=== PATIENT | female | born 1985 | race Caucasian/White ===

== ENCOUNTER 2017-06-15 08:16 | Inpatient (IN) | payer BC ==
[2017-06-15] MEDS ORDERED: Misoprostol 400 MCG (4 X 100 MCG TAB) RECTAL PRN (08:41)
[2017-06-15] MEDS ORDERED: Methylergonovine 0.2 MG/1 ML Amp IM PRN (08:41)
[2017-06-15] MEDS ORDERED: Sodium Chloride 0.9% 10 ML Syringe FLUSH PRN ×2 (08:41→10:09)
[2017-06-15] MEDS ORDERED: Ondansetron 4 MG/2 ML SDV IV PRN (08:41)
[2017-06-15] MEDS ORDERED: Lidocaine 1% 30 ML SDV INJECT PRN (08:41)
[2017-06-15] MEDS ORDERED: Lactated Ringers 500 ML IV ONE (08:41)
[2017-06-15] MEDS ORDERED: Acetaminophen 325 MG Tab PO PRN (08:41)
[2017-06-15] MEDS ORDERED: Carboprost Tromethamine 250 MCG/1 ML Amp IM PRN (08:41)
[2017-06-15] MEDS ORDERED: Tranexamic Acid 1,000 MG in Sodium Chloride 0.9% 100 ML IV PRN ×2 (08:41→09:54)
[2017-06-15] MEDS ORDERED: Lactated Ringers 1,000 ML IV SCH (08:45)
[2017-06-15] MEDS ORDERED: Zolpidem 5 MG Tab PO PRN (09:54)
[2017-06-15] MEDS ORDERED: Simethicone 80 MG Tab.Chew PO PRN (09:54)
[2017-06-15] MEDS ORDERED: Oxytocin 10 Units/1 ML SDV IM PRN (09:54)
[2017-06-15] MEDS ORDERED: Benzocaine/Menthol 20%-0.5% Spray 56 GM Canister TOP PRN (09:54)
[2017-06-15] MEDS ORDERED: Oxytocin/Normal Saline 30 UNIT/500 ML BAG IV SCH (11:00)
--- NOTE | 2017-06-15 11:58 | HP ---
PATIENT IDENTIFICATION: Shila Patterson is a 31-year-old G4, P2-1-0-3, intrauterine , 37 and 4/7 weeks, confirmed with 21 and 2/7-week ultrasound, who presents with contractions. HISTORY OF PRESENT ILLNESS: The patient states contractions started entry tech of admission around 7:00 increasing in frequency and intensity to the point that they are felt every 5 to 10 minutes, felt in the lower abdomen, rated 8/10, severe enough that she breathes through them, and this has been associated with minimal bloody show. She denies any leaking of fluid. To put this in context, she has a history of a delivery. She is GBS negative and has history of hemorrhage and atony with her first child. Records were called for, reviewed as below, and supplemented by patient history. ALLERGIES: None. MEDICATIONS: vitamins. PAST OBSTETRICAL HISTORY: 1. On 11/06/2015, delivered a female, 39 weeks, 3232 g. 2. On 05/12/2013, 36 and 1/7 weeks, delivered a female, spontaneous vaginal delivery. 3. On 12/10/2011, 40 and 2/7 weeks, delivered a female, spontaneous vaginal delivery, complicated by uterine atony and hemorrhage, requiring Hemabate. ANTEPARTUM LABORATORY DATA: ABO blood type B positive. Negative antibody. Rubella immune. RPR nonreactive. Negative hepatitis B surface antigen. Negative HIV. Negative GC and Chlamydia with wet prep essentially within normal limits. One-hour GTT on 04/06/2017, was 131. GBS from 06/06/2017 was negative. PAST MEDICAL/PAST SURGICAL HISTORY: Remarkable for history of UTIs in the past, epilepsy as a child, and surgeries including wisdom teeth extraction. FAMILY HISTORY: Thyroid disease in mother. Skin cancer in maternal grandfather with diabetes. Distant cousin with hypoplastic left heart with surgery at age 12. No other defects, anesthesia problems, or bleeding problems. SOCIAL HISTORY: She does not drink, use alcohol, or smoke. 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 has been farming. REVIEW OF SYSTEMS: Otherwise, quickly reviewed and felt to be noncontributory. The patient denies any headaches, visual changes, or upper abdominal pain. PHYSICAL EXAMINATION: Vital Signs: Initial blood pressure 140/89, recheck 142/70; heart rate between 66 and 71; and temperature is 98.1. Appearance: Female, appears her stated age, acting appropriate for age, nontoxic in appearance, breathing through contractions but answering questions appropriately in between. HEENT: Head atraumatic. EOMs intact. PERRLA. No scleral icterus. No obvious otorrhea or rhinorrhea. Mucous membranes are moist. Neck: No obvious tenderness. Lungs: Clear to auscultation bilaterally. No increased work of breathing. Heart: S1 and S2. Regular rate and rhythm. Abdomen: Gravid. Remy's indeterminate. Nontender and nondistended. Bowel sounds positive. No other organomegaly, pulsatile masses, or obvious hernias. No rebound, rigidity, or guarding. Genitourinary: Normal external female genitalia. Normal position and presentation of urethra. Vaginal exam reveals her initially to be 5+ cm, 100% effaced, 0 to -1 station, and vertex suspected. She subsequently moved to an inpatient room, shortly evaluated thereafter, and found to be 7 cm, 100% effaced, 0 station, and vertex suspected. Artificial rupture of membranes done yielding copious amounts of clear fluid. heart tones in the 125 range, baseline with accelerations noted and reactive strip. Tocometer reveals contractions every 4 to 5 minutes apart. LABORATORY DATA: Pending her labs. ASSESSMENT: 1. Intrauterine at 37 and 4/7 weeks, confirmed with 21 and 2/7-week ultrasound. 2. Active labor. 3. Advanced cervical dilation. 4. Transient versus gestational hypertension versus preeclampsia. Labs are being done. 5. Group B Streptococcus negative. 6. History of delivery. 7. History of hemorrhage, secondary to uterine atony. We will have medicines available and ready. 8. G4, P2-1-0-3. PLAN: The patient has been admitted. Artificial rupture of membranes has been done. The patient defers wanting anything for pain. We will continue to follow clinically and closely. She denies any signs or symptoms of severe preeclampsia. Labs will be drawn. [facility] /[id number]
--- NOTE | 2017-06-15 12:07 | OBOUT ---
DATE: 06/15/2017 DATE AND TIME OF NST: Date: 06/15/2017. Time: 8:50 to 9:05. REASON FOR NST: 1. Intrauterine 37 and 4/7 weeks, confirmed with 21 and 2/7 weeks ultrasound. 2. Active labor. 3. Advanced cervical dilation. 4. Transient versus gestational hypertension versus preeclampsia. 5. Group B Streptococcus negative. 6. History of delivery. 7. History of hemorrhage, secondary to apnea. 8. G4, P2-1-0-3. NST INTERPRETATION: During this time period, tone baseline is approximately 125 with at least two 15 x 15 beats per minute accelerations, making this strip reactive. It is also noted to be reassuring Tocometer reveals potential 4 to 5 contractions felt by patient. ASSESSMENT: 1. Nonstress test, reactive and reassuring. 2. Tocometer with contractions. PLAN: Please see admit history and physical for further details. [facility] /[id number]
[2017-06-15] MEDS: Ibuprofen 800 MG Tab PO PRN ×2 (12:47→21:20)
--- NOTE | 2017-06-15 14:40 | DEL ---
DATE: 06/15/2017 PREOPERATIVE DIAGNOSES: 1. Intrauterine 37 and 4/7 weeks, confirmed with 21 and 2/7 week ultrasound. 2. Active labor upon admit. 3. Advanced cervical dilation upon admit. 4. Gestational hypertension vs preeclampsia, labs pending. 5. Group B Streptococcus negative. 6. History of delivery. 7. History of hemorrhage secondary to atony with previous delivery. 8. G4, P2-1-0-3. POSTOPERATIVE DIAGNOSES: 1. Intrauterine 37 and 4/7 weeks, confirmed with 21 and 2/7 week ultrasound, delivered. 2. Active labor upon admit. 3. Advanced cervical dilation upon admit. 4. Gestational hypertension vs preeclampsia, labs pending. 5. Group B Streptococcus negative. 6. History of delivery. 7. History of hemorrhage secondary to atony with previous delivery. 8. G4, P2-1-0-3. PROCEDURE PERFORMED: NST, artificial rupture of membranes, spontaneous vaginal delivery per Dr. Hernandez. ANESTHESIA/ANALGESIA: None. ESTIMATED BLOOD LOSS: 300 mL. FINDING: Male with scores of 9 and 9, weight pending. SUMMARY OF EVENTS: The patient is a 31-year-old, G4, P2-1-0-3, intrauterine 37 and 4/7 weeks, confirmed with 21 and 2/7 week ultrasound, admitted in active labor, advanced cervical dilation, underwent artificial rupture of membranes with NST proceeding and then subsequently was found to be complete with urge to push. I was called to the room, donned in sterile gown and gloves. The patient pushed with contractions, vertex was delivered in a JAVI presentation followed by anterior and posterior shoulder as well as rest of the infant without difficulty. Mouth and nares were suctioned. Cord was doubly clamped and cut. was resuscitated on mother's abdomen. Then, approximately 10 mL of cord blood was obtained for labs. Placenta then delivered with gentle cord traction within 5 to 10 minutes. Perineum, vagina, and perirectal areas were examined without any tears or lacerations. Mother and are currently stable at the time of dictation. [facility] /[id number] [facility]
[2017-06-15] MEDS: Docusate Sodium 100 MG Cap PO PRN (21:20)
[2017-06-16] MEDS: Ibuprofen 800 MG Tab PO PRN ×2 (05:13→15:59)
[2017-06-16] MEDS: Docusate Sodium 100 MG Cap PO PRN (08:30)
[2017-06-16 08:46] VITALS: BP 130/66
[2017-06-16] MEDS ORDERED: Prenatal Multivitamin with Calcium/Folic Acid/Iron Tab PO SCH (09:00)
--- NOTE | 2017-06-19 07:49 | DISCH ---
HISTORY AND HOSPITAL COURSE: This patient is a very pleasant 31-year-old multigravida, who was presently at 37 weeks 4 days' gestation. Her KARLOS was July 02. She has had some intermittent and transient gestational hypertension versus possible mild preeclampsia with this . Most of the time, her blood pressures have been acceptable. She is also GBS negative. She did enter this hospital in active labor on 06/15/2017. Other past obstetrical history matters revealed that she did have history of delivery at least once before and history of prior hemorrhage secondary to uterine atony. She also was known to have superficial varicosities, more prominent on the right leg. Please see my notation below regarding possible new onset of superficial phlebitis on the right thigh. The patient did proceed on very nicely, and Dr. Hernandez performed a spontaneous vaginal delivery of a 7-pound 1-ounce baby girl who had scores of 9 and 9. There were no lacerations and no intrapartum or complications with that delivery. Please see his dictated delivery note. Please also see his dictated admission H and P. I have rounded on the patient for Dr. Hernandez while he has been out of town. He has thoroughly discussed her with me previously. She is doing well on the day of discharge, which was 06/16/2017. She is tolerating diet well and has normal bowel and bladder function, and is well established. Her vital signs remained stable. It was noted, however, and the patient reported to me that she had actually 2 small foci of slightly reddened skin and slightly tender cutaneous or skin areas on the inner aspect of the upper right thigh. We have closely inspected these with her. There is some very slight erythema there and some slight tenderness in these 2 areas, and each area was approximately 2.5 cm in diameter on the inner aspect of the right upper thigh. I did not feel any cords or nodular or indurated area. These appear to be over some varicosities; however, we have also closely inspected all the varicosities of both lower extremities. Her Homans sign is negative bilaterally. She denies any calf tenderness. She denies any left thigh tenderness. There is slight right thigh tenderness and slight erythema as described above. The femoral, inguinal, and groin areas are negative to my digital palpation. Both legs appear to be equal in diameter. I believe that this may possibly represent an early or mild superficial phlebitis of the right upper thigh. This is certainly not deep venous thrombophlebitis. Please see our instructions below regarding our plan of management. Her discharge hemoglobin on June 16 was 12.2. Her blood pressures were 130/66. The fundus was firm. The extremity exam is as described above. She is tolerating regular diet. She is doing gradual progressive ambulation. DISCHARGE INSTRUCTIONS: Consisted of to please contact us if any change or worsening of any pain or discomfort or erythema or redness in the lower extremities or any problems in the breast or nipple area. She was also instructed to contact us if any excessive vaginal bleeding, pelvic pain, trouble breathing, fever, or any problems whatsoever. She assures us that she will keep us closely informed on the phone. Other instructions were to do gradual progressive ambulation at home, although avoid prolonged standing in 1 place for long periods of time without moving her legs. We did ask her to elevate her extremities intermittently and to apply ice intermittently for now to these 2 small foci of tenderness in the right thigh. She was instructed to contact us at once if any symptoms seem to persist, change, or worsen. She will use ibuprofen or Motrin as an antiinflammatory and as a mild analgesic. If any headaches or excessive bleeding of course, she will contact us. Healthy well- balanced nutritional measures were also discussed with her. DISCHARGE MEDICATIONS: Consist of: 1. vitamins 1 daily. 2. Utilizing Motrin or ibuprofen 400 to 600 mg p.o. q.6 hours p.r.n. with food or meals for pain and/or lower extremity discomfort. I will emphasize again that there is no clinical suspicion for DVT in this patient, and she is going to keep in close contact with us if symptoms do not resolve or improve. FOLLOWUP APPOINTMENT: She will see Dr. Hernandez in the office in approximately 1 week, and I understand the baby does have an appointment this coming Monday. FINAL DIAGNOSES: 1. at approximately 37 weeks 4 days' gestation, delivered. 2. Transient gestational hypertension. 3. Superficial varicosities of both lower extremities with possible mild or early superficial phlebitis of right thigh. OPERATIONS/PROCEDURES: Spontaneous vaginal delivery by Dr. Hernandez on 06/15/2017. [facility] /[id number]
== END 2017-06-16 17:16 | disposition home or self-care (01) | DRG 560 ==
LOC: DL.OBCHECK 08:16 → DL.OB 08:37 → OBSVTOIN 10:34
PROVIDERS: ADMIT Family Medicine; ATTEND Family Medicine
PROC: 10E0XZZ Delivery of Products of Conception, External Approach (ICD-10-PCS; principal; 2017-06-15)
PROC: 10907ZC Drainage of Amniotic Fluid, Therapeutic from Products of Conception, Via Natural or Artificial Opening (ICD-10-PCS; 2017-06-15)
DX: O13.4 Gestational [pregnancy-induced] hypertension without significant proteinuria, complicating childbirth (principal); Z3A.37 37 weeks gestation of pregnancy; Z37.0 Single live birth; O87.4 Varicose veins of lower extremity in the puerperium; O87.0 Superficial thrombophlebitis in the puerperium
CPT/HCPCS: 36415; 59409; 81003; 82565; 82570; 83615; 84156; 84450; 84460; 84520; 84550; 85027; A9270-GY; J2590; J7120